=== PATIENT | male | born 1945 | race Caucasian/White ===

== ENCOUNTER 2016-10-20 10:33 | Emergency (ER) | payer MEDICARE ==
[2016-10-20 11:14] VITALS: PULSE 61; RESP 18
[2016-10-20] MEDS ORDERED: DIPH,PERTUS(ACELL)TETVAC-LF 0.5 ML VIAL IM ONE (11:37)
--- NOTE | 2016-10-20 11:40 | ED ---
General Adult HPI - General Chief complaint: Fall Stated complaint: fall Time Seen by Provider: 10/20/16 11:17 Source: patient, family, RN notes reviewed Mode of arrival: ambulatory Limitations: no limitations - History of Present Illness Initial comments: Patient is a pleasant 71-year-old male presenting to the emergency department complaining of a fall. Incident occurred yesterday. Patient tripped while walking the dog. Patient did strike his head. No loss of consciousness. No confusion. No nausea vomiting. No visual changes. No weakness. Patient does have some discomfort in his head as well as his neck and back and shoulders. Unclear last tetanus immunization. - Related Data Home Medications Medication Instructions Recorded Confirmed Fluticasone Propionate [Flonase 1 spray EA NOSTRIL BID PRN 10/20/16 10/20/16 Allergy Relief] Levothyroxine Sodium [Synthroid] 25 mcg PO DAILY 10/20/16 10/20/16 Nadolol [Corgard] 40 mg PO DAILY 10/20/16 10/20/16 Omeprazole [PriLOSEC] 20 mg PO DAILY 10/20/16 10/20/16 Primidone [Mysoline] 50 mg PO BID 10/20/16 10/20/16 Simvastatin [Zocor] 40 mg PO DAILY 10/20/16 10/20/16 Previous Rx's Medication Instructions Recorded Acetaminophen-Codeine 300-30mg 1 each PO Q4H PRN #12 tablet 10/20/16 [Tylenol #3] Allergies Allergy/AdvReac Type Severity Reaction Status Date / Time No Known Allergies Allergy Verified 10/20/16 11:42 Review of Systems ROS Statement: Those systems with pertinent positive or pertinent negative responses have been documented in the HPI. ROS Other: All systems not noted in ROS Statement are negative. Constitutional: Denies: fever Eyes: Denies: eye pain ENT: Denies: ear pain Respiratory: Denies: cough, dyspnea Cardiovascular: Denies: chest pain Endocrine: Denies: fatigue Gastrointestinal: Denies: abdominal pain Genitourinary: Denies: dysuria Musculoskeletal: Reports: back pain Skin: Denies: rash Neurological: Reports: headache. Denies: weakness, confusion Past Medical History Past Medical History: Cancer, Hypertension Additional Past Medical History / Comment(s): SKIN History of Any Multi-Drug Resistant Organisms: None Reported Additional Past Surgical History / Comment(s): SKIN SURGERIES Past Psychological History: No Psychological Hx Reported Smoking Status: Former smoker Past Alcohol Use History: Occasional Past Drug Use History: None Reported General Exam Limitations: no limitations General appearance: alert, in no apparent distress Head exam: Present: other (Facial and head abrasions) Eye exam: Present: EOMI, other (Left pupil with mild irregularity which patient states is chronic from previous cataract surgery. Pupils are reactive otherwise ). Absent: nystagmus ENT exam: Present: normal oropharynx, other (Left lower frontal incisor with 1 mm motion. Patient states this may be chronic. Previous surgery there.) Neck exam: Present: normal inspection. Absent: tenderness Respiratory exam: Present: normal lung sounds bilaterally. Absent: chest wall tenderness Cardiovascular Exam: Present: regular rate, normal rhythm GI/Abdominal exam: Present: soft. Absent: tenderness Extremities exam: Present: normal inspection, full ROM, other (No shoulder tenderness). Absent: tenderness Back exam: Present: normal inspection, tenderness (Mild to moderate tenderness to 3 T4 region midline.) Neurological exam: Present: alert, oriented X3, CN II-XII intact. Absent: motor sensory deficit Expanded Speech: Present: fluid speech Cranial nerves: EOM's Intact: Normal Motor strength exam: RUE: 5, LUE: 5, RLE: 5, LLE: 5 Eye Response: (4) open spontaneously Motor Response: (6) obeys commands Verbal Response: (5) oriented Psychiatric exam: Present: normal affect, normal mood Skin exam: Absent: rash Course Vital Signs 10/20/16 10/20/16 11:07 12:35 Temperature 98.1 F 98.2 F Pulse Rate 61 61 Respiratory 18 18 Rate Blood Pressure 144/69 157/75 O2 Sat by Pulse 97 96 Oximetry Medical Decision Making - Medical Decision Making Patient reevaluated and updated. - Radiology Data Radiology results: report reviewed (Computed tomography scan of brain and cervical spine show no acute process.), image reviewed (X-ray of the thoracic spine somewhat suboptimal, no acute fracture) Disposition Clinical Impression: Fall, Head injury Disposition: HOME SELF-CARE Condition: Stable Instructions: Head Injury (ED) Additional Instructions: Please follow-up with primary care physician in the next couple days for recheck. Return for change in mental status, weakness, confusion, difficulty breathing, worsening symptoms or other concerns. Prescriptions: Acetaminophen-Codeine 300-30mg [Tylenol #3] 1 each PO Q4H PRN #12 tablet PRN Reason: Pain Referrals: Chicho Chang MD [Primary Care Provider] - 1-2 days Time of Disposition: 12:54
--- NOTE | 2016-10-20 12:08 | CT ---
EXAMINATION TYPE: CT brain maki kathleen con DATE OF EXAM: 10/20/2016 11:59 AM COMPARISON: NONE HISTORY: Fell hitting head, neck pain CT DLP: 1647.[address] of the brain was performed. The ventricles, basal cisterns and sulci overlying the cerebral convexities demonstrate mild enlargem ent. There is no evidence for intracranial hemorrhage or sulcal effacement. There is decreased attenuatio n about the periventricular white matter and deep white matter of both cerebral hemispheres, compatib le with chronic small vessel ischemia. No mass effects are seen. If symptoms persist consider MRI. Osseous calvarium is intact. Mild scalp hematoma. IMPRESSION: 1. Age related atrophic and chronic small vessel ischemic change without acute intracranial process seen at this time. CT Cervical Spine: Unenhanced CT of the cervical spine was performed with bone and soft tissue window settings submitted . Coronal and sagittal reconstruction is obtained. There is normal alignment and prevertebral soft tissues. No evidence for acute cervical fracture . Scattered degenerative disc disease and spondylosis. Biapical scarring. IMPRESSION: 1. No evidence for acute fracture or subluxation of the cervical spine.
[2016-10-20 12:38] VITALS: BP 157/75; TEMP 98.2
--- NOTE | 2016-10-20 12:46 | XR ---
EXAMINATION TYPE: XR thoracic spine complete DATE OF EXAM: 10/20/2016 12:09 PM CLINICAL HISTORY: Upper back pain since recent fall injury. TECHNIQUE: Frontal, lateral, and swimmer's view of thoracic spine are obtained. COMPARISON: None. FINDINGS: Upper thoracic levels are suboptimally evaluated despite attempted swimmer's view due to pa tient's body habitus. In addition there is demineralization seen which is noted to lower radiographic sensitivity. Visualized portion of thoracic spine show satisfactory alignment without evidence of ac alfreda fracture or dislocation. Vertebral mild multilevel height loss in the mid thoracic spine is pres ent. Disc space heights are fairly well-maintained. No significant spurring is seen. Visualized ribs are unremarkable. Note is made of spondylolisthesis at C3-C4 and C4-C5 levels in the cervical spine on swimmer's view. IMPRESSION: Suboptimal study without acute fracture or dislocation clearly seen in the thoracic spine .
[2016-10-20] MEDS ORDERED: ACET/COD 300 MG/30 MG STARTER PACK 6 TAB BTL PO STA (12:56)
== END 2016-10-20 13:12 | disposition home or self-care (01) ==
LOC: EC 10:33
DX: S00.81XA Abrasion of other part of head, initial encounter (principal); I10 Essential (primary) hypertension; Z85.9 Personal history of malignant neoplasm, unspecified; Z87.891 Personal history of nicotine dependence; Z23 Encounter for immunization; Z79.899 Other long term (current) drug therapy; W01.0XXA Fall on same level from slipping, tripping and stumbling without subsequent striking against object, initial encounter
CPT/HCPCS: 70450; 72072; 72125; 90471; 90715; 99284

== ENCOUNTER → 2018-01-13 | Outpatient (CLI) | payer MEDICARE ==
--- NOTE | 2018-01-13 13:45 | CT ---
EXAMINATION TYPE: CT sinus wo con DATE OF EXAM: 01/13/2018 COMPARISON: NONE HISTORY: Patient complains of chronic sinus pressure and drainage. CT DLP: 591 mGycm. Automated Exposure Control for Dose Reduction was Utilized. TECHNIQUE: CT scan of the sinuses is performed without contrast, axial images are obtained, coronal r eformatted images are also reviewed. FINDINGS: Large nonobstructive dorian bullosa seen within the right middle nasal turbinate. There is mild rightward nasal septal deviation, also nonobstructive of the anterior inferior nasal septum. No nasal turbinate mucosal hypertrophy. Only very scant mucosal thickening is seen of the right maxillar y sinus on series 4 image 4. Ostiomeatal complexes are patent. There is are 3 mm right-sided and 4 mm left-sided nonobstructive Yrn cells. The frontal, ethmoid, and sphenoid sinuses are well aerated. Mastoid air cells are also well aerated. A small amount of cerumen is seen within the right external auditory canal. Middle ear cavities are free of fluid. Nasal septum and nasal bone are intact. Orbit s are symmetric. Ocular lenses are either atrophic or surgically absent. Visualized portion of the in tracranial parenchyma is limited given technique but demonstrate age-related atrophy. IMPRESSION: 1. Large nonobstructive dorian bullosa of the right middle nasal turbinate. 2. Scant mucosal thickening within the right maxillary sinus. No ostiomeatal occlusion. 3. Small bilateral 3 and 4 mm Yrn cells. 4. Mild rightward nasal septal deviation.
== END | disposition home or self-care (01) ==
LOC: RADCTMAIN 12:21
PROVIDERS: ATTEND Otolaryngology
DX: J34.2 Deviated nasal septum (principal); J34.89 Other specified disorders of nose and nasal sinuses
CPT/HCPCS: 70486

== ENCOUNTER 2020-12-11 09:46 | Emergency (ER) | payer MEDICARE ==
[2020-12-11 09:59] VITALS: BP 142/82; PULSE 63; RESP 18; TEMP 97.4
--- NOTE | 2020-12-11 10:45 | ED ---
General Adult HPI - General Chief complaint: Abdominal Pain Stated complaint: post op, trouble urinating Time Seen by Provider: 12/11/20 10:23 Source: patient, family Mode of arrival: ambulatory Limitations: no limitations - History of Present Illness Initial comments: 75 year-old male patient presents to the emergency department for evaluation of urinary retention. Patient states that he had a surgical procedure yesterday under general anesthesia. States that today he has had a lot of pressure in the lower abdomen. He also reports voiding small amounts frequently. Denies history of urinary retention or prostate disorder. Denies fever, chills, back pain, nausea, or vomiting. - Related Data Home Medications Medication Instructions Recorded Confirmed Fluticasone Propionate [Flonase 1 spray EA NOSTRIL DAILY PRN 10/20/16 12/11/20 Allergy Relief] Levothyroxine Sodium [Synthroid] 25 mcg PO DAILY 10/20/16 12/11/20 Nadolol [Corgard] 40 mg PO DAILY 10/20/16 12/11/20 Omeprazole [PriLOSEC] 20 mg PO DAILY 10/20/16 12/11/20 Primidone [Mysoline] 50 mg PO BID 10/20/16 12/11/20 Simvastatin [Zocor] 40 mg PO DAILY 10/20/16 12/11/20 Acetaminophen Tab [Tylenol Tab] 1,000 mg PO Q6HR PRN 12/11/20 12/11/20 Cholecalciferol [Vitamin D3 (25 25 mcg PO DAILY 12/11/20 12/11/20 Mcg = 1000 Iu)] Glimepiride [Amaryl] 2 mg PO AC-BRKFST 12/11/20 12/11/20 Meclizine [Antivert] 25 mg PO Q8H PRN 12/11/20 12/11/20 Turmeric Root Extract [Turmeric] 500 mg PO DAILY 12/11/20 12/11/20 metFORMIN HCL [Glucophage] 500 mg PO DAILY 12/11/20 12/11/20 Allergies Allergy/AdvReac Type Severity Reaction Status Date / Time No Known Allergies Allergy Verified 12/11/20 11:27 Review of Systems ROS Statement: Those systems with pertinent positive or pertinent negative responses have been documented in the HPI. ROS Other: All systems not noted in ROS Statement are negative. Past Medical History Past Medical History: Cancer, Hypertension Additional Past Medical History / Comment(s): SKIN History of Any Multi-Drug Resistant Organisms: None Reported Additional Past Surgical History / Comment(s): SKIN SURGERIES, melanoma removed yesterday Past Psychological History: No Psychological Hx Reported Smoking Status: Never smoker Past Alcohol Use History: Occasional Past Drug Use History: None Reported General Exam Limitations: no limitations General appearance: alert, in no apparent distress, other (This is a well- developed, well-nourished adult male patient in no acute distress. Vital signs upon presentation temperature 97.4F, pulse 63, respirations 18, blood pressure 142/82, pulse ox 95% on room air.) Eye exam: Present: normal appearance, PERRL, EOMI. Absent: scleral icterus, conjunctival injection, periorbital swelling ENT exam: Present: normal exam, normal oropharynx, mucous membranes moist Respiratory exam: Present: normal lung sounds bilaterally. Absent: respiratory distress, wheezes, rales, rhonchi, stridor Cardiovascular Exam: Present: regular rate, normal rhythm, normal heart sounds. Absent: systolic murmur, diastolic murmur, rubs, gallop, clicks GI/Abdominal exam: Present: soft, tenderness (suprapubic), normal bowel sounds. Absent: distended, guarding, rebound, rigid Back exam: Present: normal inspection. Absent: CVA tenderness (R), CVA tenderness (L) Neurological exam: Present: alert, oriented X3, CN II-XII intact Psychiatric exam: Present: normal affect, normal mood Skin exam: Present: warm, dry, intact, normal color. Absent: rash Course Vital Signs 12/11/20 09:53 Temperature 97.4 F L Pulse Rate 63 Respiratory 18 Rate Blood Pressure 142/82 O2 Sat by Pulse 95 Oximetry Medical Decision Making - Medical Decision Making 75 year-old male patient presented for urinary retention after general anesthesia. Physical exam revealed some suprapubic tenderness. Bladder scan was [address] Perla catheter due to symptoms, he had output of 600 mL. Perla catheter will be left in place. He'll be discharged with instructions to follow up with the urologist or his primary care physician for recheck within 1- 3 days. Return parameters were discussed in detail. He verbalizes understanding and agrees with this plan. Case discussed with my attending Dr. Rosenberg. - Lab Data Lab Results 12/11/20 Range/Units 10:44 Urine Color Yellow Urine Appearance Clear (Clear) Urine pH 5.0 (5.0-8.0) Ur Specific [place]ver 1.021 (1.001-1.035) Urine Protein Negative (Negative) Urine Glucose (UA) Negative (Negative) Urine Ketones Negative (Negative) Urine Blood Negative (Negative) Urine Nitrite Negative (Negative) Urine Bilirubin Negative (Negative) Urine Urobilinogen <2.0 (<2.0) mg/dL Ur Leukocyte Esterase Negative (Negative) Disposition Clinical Impression: Urinary retention Disposition: HOME SELF-CARE Condition: Good Instructions (If sedation given, give patient instructions): Urinary Retention in Men (ED), Perla Catheter Placement and Care (ED) Additional Instructions: Increase fluids. Follow up with the urologist or primary care physician for recheck as soon as possible. Return for any new, worsening, or concerning symptoms. Is patient prescribed a controlled substance at d/c from ED?: No Referrals: Chicho Chang MD [Primary Care Provider] - 1-2 days Mathew Alarcon MD [STAFF PHYSICIAN] - 1-2 days Time of Disposition: 11:36
[2020-12-11 11:16] LABS: Appearance,Urine Clear (Clear); Bilirubin,Urine Negative (Negative); Blood,Urine Negative (Negative); Color,Urine Yellow; Glucose,Urine (UA) Negative (Negative); Ketones,Urine Negative (Negative); Leukocyte Esterase,Urine Negative (Negative); Nitrite,Urine Negative (Negative); Protein,Urine Negative (Negative); Specific Gravity,Urine 1.021 (1.001-1.035); Urobilinogen,Urine <2.0 mg/dL (<2.0)
== END 2020-12-11 12:12 | disposition home or self-care (01) ==
LOC: EC 09:46
DX: R33.9 Retention of urine, unspecified (principal); I10 Essential (primary) hypertension
CPT/HCPCS: 51702; 81003; 99283